=== PATIENT | female | born 1985 | race Caucasian/White ===

== ENCOUNTER 2021-05-20 18:00 | Inpatient (IN) | payer BC ==
[2021-05-20 19:09] VITALS: BMI 25.7
[2021-05-20] MEDS: DEXTROSE 5%-LACTATED RINGERS 1,000 ML IV SCH (19:30)
[2021-05-20] MEDS ORDERED: DINOPROSTONE 10 MG VAGINAL SUPPOSITORY VG ONE (19:34)
[2021-05-20 21:42] LABS: BASO % 0.1 % (0-2.0); EOS % 0.6 % (0-4.5); HEMATOCRIT 33.6 % (32.4-45.2); HEMOGLOBIN 11.4 GM/dL (10.7-15.3); LYMPH % 15.6 % (8-40); MCH 31.1 pg (25.7-33.7); MEAN CELL VOLUME 91.4 fl (80-96); MEAN PLT VOLUME 11.4 fl (7.5-11.1); MONO % 9.2 % (3.8-10.2); NEUT % 74.5 % (42.8-82.8); PLATELET COUNT 91 10^3/uL (134-434); RBC 3.67 M/mm3 (3.60-5.2); RDW 13.8 % (11.6-15.6); WHITE BLOOD COUNT 9.5 K/mm3 (4.0-10.0)
[2021-05-20 21:44] LABS: BLOOD UREA NITROGEN 9.9 mg/dL (7-18); CALCIUM 8.6 mg/dL (8.5-10.1)
[2021-05-20 21:48] LABS: CREATININE 0.8 mg/dL (0.55-1.3)
[2021-05-20 21:49] LABS: INR 0.91 (0.83-1.09); PROTHROMBIN TIME (PATIENT) 10.6 SEC (9.7-13.0)
[2021-05-21] MEDS ORDERED: PROMETHAZINE HCL 25 MG/1 ML VIAL ONE (00:09)
[2021-05-21] MEDS ORDERED: BUTORPHANOL TARTRATE 2 MG/ML VIAL ONE (00:09)
[2021-05-21] MEDS ORDERED: PROMETHAZINE HCL 25 MG/1 ML VIAL IVPB ONE (00:10)
[2021-05-21] MEDS ORDERED: BUTORPHANOL TARTRATE 1 MG/ML VIAL IVPB ONE (00:10)
[2021-05-21 01:18] LABS: BASO % 0.3 % (0-2.0); EOS % 0.7 % (0-4.5); HEMATOCRIT 32.8 % (32.4-45.2); HEMOGLOBIN 11.3 GM/dL (10.7-15.3); LYMPH % 17.9 % (8-40); MCH 31.4 pg (25.7-33.7); MCHC 34.4 g/dl (32.0-36.0); MEAN CELL VOLUME 91.4 fl (80-96); MEAN PLT VOLUME 11.3 fl (7.5-11.1); MONO % 9.4 % (3.8-10.2); NEUT % 71.7 % (42.8-82.8); PLATELET COUNT 78 10^3/uL (134-434); RBC 3.59 M/mm3 (3.60-5.2); RDW 13.3 % (11.6-15.6); WHITE BLOOD COUNT 8.5 K/mm3 (4.0-10.0)
[2021-05-21] MEDS: DEXTROSE 5%-LACTATED RINGERS 1,000 ML IV SCH (01:20)
[2021-05-21 03:37] LABS: BASO % 0.1 % (0-2.0); EOS % 0.1 % (0-4.5); HEMATOCRIT 34.2 % (32.4-45.2); HEMOGLOBIN 11.8 GM/dL (10.7-15.3); LYMPH % 14.9 % (8-40); MCH 31.5 pg (25.7-33.7); MCHC 34.6 g/dl (32.0-36.0); MEAN PLT VOLUME 11.1 fl (7.5-11.1); MONO % 6.7 % (3.8-10.2); NEUT % 78.2 % (42.8-82.8); PLATELET COUNT 76 10^3/uL (134-434); RBC 3.76 M/mm3 (3.60-5.2); RDW 13.7 % (11.6-15.6); WHITE BLOOD COUNT 10.4 K/mm3 (4.0-10.0)
[2021-05-21] MEDS ORDERED: PCA PUMP NR ONE ×2 (05:53→09:53)
[2021-05-21] MEDS ORDERED: FENTANYL/BUPIVACAINE/NS/PF - PCEA - 50 ML DISP.SYRIN EP ONE ×3 (05:54→14:37)
[2021-05-21] MEDS ORDERED: NALOXONE HCL 0.4 MG/ML VIAL IVPUSH PRN (06:41)
[2021-05-21] MEDS ORDERED: FENTANYL/BUPIVACAINE/NS/PF - PCEA - 50 ML DISP.SYRIN EP SCH (06:45)
[2021-05-21] MEDS ORDERED: OXYTOCIN 20 UNITS in 0.9% NS 20 UNIT/1,000 ML INFUS.BAG IV ONE (08:45)
[2021-05-21] MEDS ORDERED: OXYTOCIN 30 UNITS in 0.9% NS 30 UNIT/500 ML INFUS.BAG IVPB ONE (08:45)
[2021-05-21] MEDS ORDERED: OXYTOCIN 15 UNITS in 0.9% NS 15 UNIT/250 ML INFUS.BAG IVPB SCH (09:00)
[2021-05-21] MEDS ORDERED: BUPIVACAINE HCL/PF 0.25% (2.5MG/ML) 10 ML VIAL ONE ×3 (09:52→15:18)
[2021-05-21 10:43] LABS: BASO % 0.4 % (0-2.0); HEMATOCRIT 33.9 % (32.4-45.2); HEMOGLOBIN 11.7 GM/dL (10.7-15.3); LYMPH % 8.8 % (8-40); MCHC 34.4 g/dl (32.0-36.0); MEAN CELL VOLUME 90.1 fl (80-96); MEAN PLT VOLUME 11.7 fl (7.5-11.1); MONO % 4.8 % (3.8-10.2); PLATELET COUNT 78 10^3/uL (134-434); RBC 3.76 M/mm3 (3.60-5.2); RDW 13.6 % (11.6-15.6); WHITE BLOOD COUNT 12.2 K/mm3 (4.0-10.0)
[2021-05-21] MEDS ORDERED: LIDOCAINE HCL 1% PRESERVATIVE FREE - 30ML VIAL ONE (15:17)
[2021-05-21 19:01] LABS: CORD BASE EXCESS -6.7 mmol/L (0-2); CORD HCO3 19.7 mmHg (20-29); CORD PCO2 42.4 mmHg (30-78); CORD pH 7.284 (7.14-7.44)
[2021-05-21 19:04] LABS: CORD BASE EXCESS -6.9 mmol/L (0-2); CORD HCO3 21.2 mmHg (20-29); CORD PCO2 52.8 mmHg (30-78); CORD pH 7.221 (7.14-7.44)
[2021-05-21] MEDS ORDERED: METHYLERGONOVINE MALEATE 0.2 MG/1 ML AMP IM PRN (19:11)
[2021-05-21] MEDS ORDERED: BENZOCAINE 28 GM HEMORRHOIDAL OINTMENT TP PRN (19:11)
[2021-05-21] MEDS ORDERED: WITCH HAZEL 50% (TUCKS) 40 PAD/JAR PAD TP PRN (19:11)
[2021-05-21] MEDS ORDERED: BISACODYL 10 MG SUPP.RECT RC PRN (19:11)
[2021-05-21] MEDS ORDERED: IBUPROFEN 600 MG TABLET (FP) PO PRN (19:11)
[2021-05-21] MEDS ORDERED: BENZOCAINE 20% 57 GM BOTTLE TP PRN (19:11)
[2021-05-21] MEDS ORDERED: ACETAMINOPHEN 325 MG TABLET (FP) PO PRN ×2 (19:11)
[2021-05-21] MEDS ORDERED: OXYTOCIN 20 UNITS in 0.9% NS 20 UNIT/1,000 ML INFUS.BAG IV SCH (19:15)
[2021-05-21] MEDS ORDERED: ACETAMINOPHEN 325 MG TABLET (FP) ONE (19:45)
[2021-05-21] MEDS ORDERED: ceFAZolin SODIUM 1 GM VIAL ONE (19:46)
[2021-05-21 21:12] LABS: HEMATOCRIT 30.3 % (32.4-45.2); HEMOGLOBIN 10.1 GM/dL (10.7-15.3); MCH 30.3 pg (25.7-33.7); MCHC 33.3 g/dl (32.0-36.0); MEAN CELL VOLUME 90.8 fl (80-96); MEAN PLT VOLUME 11.4 fl (7.5-11.1); PLATELET COUNT 82 10^3/uL (134-434); RBC 3.34 M/mm3 (3.60-5.2); RDW 13.8 % (11.6-15.6)
[2021-05-22 00:03] LABS: ANISOCYTOSIS 0; MACROCYTOSIS 0; PLATELET ESTIMATE DECREASED
[2021-05-22] MEDS: FERROUS SO4 325 MG TABLET (FP) PO SCH ×3 (01:00→21:14)
[2021-05-22] MEDS ORDERED: ceFAZolin SODIUM 1 GM VIAL ONE ×3 (03:39→19:45)
[2021-05-22] MEDS ORDERED: DEXTROSE 5%-WATER - 50 ML IVPB ONE ×3 (03:39→19:45)
[2021-05-22] MEDS: CEFAZOLIN 1 GM in DEXTROSE 5%-WATER - 50 ML IVPB SCH ×3 (03:47→19:59)
[2021-05-22] MEDS: IBUPROFEN 600 MG TABLET (FP) PO PRN ×2 (04:54→12:46)
[2021-05-22 06:20] LABS: BASO % 0.1 % (0-2.0); EOS % 0.1 % (0-4.5); HEMATOCRIT 28.5 % (32.4-45.2); HEMOGLOBIN 9.4 GM/dL (10.7-15.3); MCH 30.9 pg (25.7-33.7); MCHC 33.1 g/dl (32.0-36.0); MEAN CELL VOLUME 93.3 fl (80-96); MEAN PLT VOLUME 11.2 fl (7.5-11.1); MONO % 7.4 % (3.8-10.2); NEUT % 84.4 % (42.8-82.8); PLATELET COUNT 77 10^3/uL (134-434); RBC 3.05 M/mm3 (3.60-5.2); RDW 14.1 % (11.6-15.6); WHITE BLOOD COUNT 16.3 K/mm3 (4.0-10.0)
[2021-05-22] MEDS ORDERED: PRENATAL VITAMINS W/ FOLIC ACID TABLET (FP) PO SCH (10:00)
[2021-05-22] MEDS: PRENATAL VITAMINS W/ FOLIC ACID TABLET (FP) PO SCH (10:28)
[2021-05-22] MEDS: DOCUSATE SODIUM 100 MG CAPSULE (FP) PO SCH ×2 (15:21→21:15)
[2021-05-22] MEDS ORDERED: CEFAZOLIN 1 GM in DEXTROSE 5%-WATER - 50 ML IVPB SCH (19:45)
[2021-05-22] MEDS ORDERED: SENNOSIDES/DOCUSATE COMBO (SENNA PLUS) TABLET (UD) PO PRN ×2 (22:00)
[2021-05-23] MEDS: DOCUSATE SODIUM 100 MG CAPSULE (FP) PO SCH ×2 (06:34→13:17)
[2021-05-23] MEDS: IBUPROFEN 600 MG TABLET (FP) PO PRN (10:39)
[2021-05-23] MEDS: PRENATAL VITAMINS W/ FOLIC ACID TABLET (FP) PO SCH (10:39)
[2021-05-23] MEDS: FERROUS SO4 325 MG TABLET (FP) PO SCH (10:42)
[2021-05-23 11:21] VITALS: BP 115/75; PULSE 76; TEMP 98.2
== END 2021-05-23 13:50 | disposition home or self-care (01) | DRG 768 ==
LOC: JLDR 18:00 → J3W 05-21 20:59
PROVIDERS: ADMIT Obstetrics & Gynecology; ATTEND Obstetrics & Gynecology
PROC: 0DQP0ZZ Repair Rectum, Open Approach (ICD-10-PCS; principal; 2021-05-21)
PROC: 10D07Z6 Extraction of Products of Conception, Vacuum, Via Natural or Artificial Opening (ICD-10-PCS; 2021-05-21)
DX: O48.0 Post-term pregnancy (principal); Z37.0 Single live birth; O70.3 Fourth degree perineal laceration during delivery; O75.81 Maternal exhaustion complicating labor and delivery; Z3A.40 40 weeks gestation of pregnancy
CPT/HCPCS: 36415; 36600; 59409; 80048; 82803; 85025; 85032; 85610; 85730; 86780; 86850; 86900; 86901; C9803; U0003; U0005

== ENCOUNTER 2022-07-08 04:12 | Day surgery (SDC) | payer BC ==
[2022-07-04 16:07] VITALS: BMI 21.7
[2022-07-08] MEDS ORDERED: IBUPROFEN 600 MG TABLET (FP) PO PRN (12:18)
[2022-07-08] MEDS ORDERED: ONDANSETRON 4 MG/2 ML VIAL IVPUSH PRN (12:18)
[2022-07-08] MEDS ORDERED: oxyCODONE HCL 5 MG TABLET PO PRN (12:18)
[2022-07-08] MEDS ORDERED: IBUPROFEN 800 MG/8 ML IJ IVPB PRN (12:18)
[2022-07-08] MEDS ORDERED: ELECTROLYTE-148 SOLN 1,000 ML IV SCH (12:30)
[2022-07-08] MEDS ORDERED: PROPOFOL 20 ML ONE ×2 (14:31→15:03)
[2022-07-08] MEDS ORDERED: MIDAZOLAM HCL 2 MG/2 ML SINGLE DOSE VIAL ONE ×2 (14:31→14:44)
[2022-07-08] MEDS ORDERED: FENTANYL CITRATE/PF 50 MCG/ML VIAL ONE ×2 (14:31→14:58)
[2022-07-08 17:13] VITALS: RESP 16
[2022-07-08 17:23] VITALS: BP 102/63; PULSE 72; TEMP 98.2
== END 2022-07-08 16:15 | disposition home or self-care (01) ==
LOC: JASU-SURG 04:12
PROVIDERS: ATTEND Obstetrics & Gynecology
PROC: 10D17ZZ Extraction of Products of Conception, Retained, Via Natural or Artificial Opening (ICD-10-PCS; principal; 2022-07-08 13:00)
DX: O02.1 Missed abortion (principal); Q96.9 Turner's syndrome, unspecified
CPT/HCPCS: 76998-TC; 88305-TC

== ENCOUNTER 2023-05-12 06:45 | Inpatient (IN) | payer BC ==
[2023-05-12] MEDS: ELECTROLYTE-148 SOLN 1,000 ML IV SCH (08:00)
[2023-05-12] MEDS ORDERED: ONDANSETRON 4 MG/2 ML VIAL IVPUSH PRN (08:00)
[2023-05-12] MEDS ORDERED: ACETAMINOPHEN 325 MG TABLET (FP) PO PRN (08:00)
[2023-05-12] MEDS ORDERED: IBUPROFEN 600 MG TABLET (FP) PO PRN (08:00)
[2023-05-12 08:01] VITALS: BMI 26.9
[2023-05-12] MEDS ORDERED: DEXTROSE 5%-LACTATED RINGERS 1,000 ML IV SCH (08:30)
[2023-05-12] MEDS ORDERED: LIGASURE IMPACT TP ONE (08:32)
[2023-05-12] MEDS ORDERED: morphine SULFATE/PF 1 MG/2 ML (2cc Syringe - QUVA) ONE (08:50)
[2023-05-12] MEDS ORDERED: ePHEDrine SULFATE 50 MG/1 ML AMPULE ONE ×2 (09:05→09:16)
[2023-05-12] MEDS ORDERED: PHENYLEPHRINE HCL 10 MG/1 ML SINGLE DOSE VIAL ONE (09:16)
[2023-05-12] MEDS ORDERED: ceFAZolin SODIUM 1 GM VIAL ONE ×2 (09:16)
[2023-05-12] MEDS ORDERED: FENTANYL CITRATE/PF 50 MCG/ML VIAL ONE (09:35)
[2023-05-12 10:01] LABS: CORD BASE EXCESS -6.4 mmol/L (0-2); CORD HCO3 20.3 mmHg (20-29); CORD PCO2 44.5 mmHg (30-78); CORD pH 7.276 (7.14-7.44)
[2023-05-12 10:03] LABS: CORD BASE EXCESS -4.9 mmol/L (0-2); CORD HCO3 24.5 mmHg (20-29); CORD PCO2 65.5 mmHg (30-78); CORD pH 7.19 (7.14-7.44)
[2023-05-12] MEDS ORDERED: OXYTOCIN 20 UNITS in 0.9% NS 20 UNIT/1,000 ML INFUS.BAG IV ONE (10:43)
[2023-05-12] MEDS ORDERED: METHYLERGONOVINE MALEATE 0.2 MG/1 ML AMP IM PRN (10:44)
[2023-05-12] MEDS ORDERED: OXYTOCIN 20 UNITS in 0.9% NS 20 UNIT/1,000 ML INFUS.BAG IV SCH (10:45)
[2023-05-12] MEDS ORDERED: IBUPROFEN 800 MG/8 ML IJ IVPB ONE (11:39)
[2023-05-12] MEDS: IBUPROFEN 800 MG/8 ML IJ IVPB PRN ×2 (11:42→20:20)
[2023-05-12] MEDS ORDERED: CITRIC ACID/SODIUM CITRATE 30 ML UNIT-DOSE CUP PO ONE (11:55)
[2023-05-12] MEDS ORDERED: ACETAMINOPHEN 1000 MG/100 ML BAG IVPB PRN (11:56)
[2023-05-12] MEDS ORDERED: oxyCODONE HCL 5 MG TABLET PO PRN (22:44)
[2023-05-13] MEDS: IBUPROFEN 600 MG TABLET (FP) PO PRN ×4 (04:31→18:26)
[2023-05-13] MEDS: ACETAMINOPHEN 325 MG TABLET (FP) PO PRN ×2 (07:41→11:08)
[2023-05-13] MEDS: SIMETHICONE 80 MG TAB.CHEW (FP) PO PRN ×2 (07:41→18:26)
[2023-05-13 09:38] LABS: BASO % 0.2 % (0-2.0); EOS % 0.4 % (0-4.5); HEMATOCRIT 30.3 % (32.4-45.2); HEMOGLOBIN 9.9 GM/dL (10.7-15.3); LYMPH % 12.1 % (8-40); MCH 29.5 pg (25.7-33.7); MCHC 32.6 g/dl (32.0-36.0); MEAN CELL VOLUME 90.5 fl (80-96); MEAN PLT VOLUME 10.7 fl (7.5-11.1); MONO % 7.2 % (3.8-10.2); NEUT % 80.1 % (42.8-82.8); PLATELET COUNT 91 10^3/uL (134-434); RBC 3.35 M/mm3 (3.60-5.2); WHITE BLOOD COUNT 7.9 K/mm3 (4.0-10.0)
[2023-05-13] MEDS ORDERED: BISACODYL 10 MG SUPP.RECT RC PRN (10:44)
[2023-05-14] MEDS: SIMETHICONE 80 MG TAB.CHEW (FP) PO PRN ×4 (00:10→19:43)
[2023-05-14] MEDS: IBUPROFEN 600 MG TABLET (FP) PO PRN ×4 (00:10→19:43)
[2023-05-14] MEDS: ELECTROLYTE-148 SOLN 1,000 ML IV SCH (00:57)
[2023-05-15] MEDS: SIMETHICONE 80 MG TAB.CHEW (FP) PO PRN ×2 (02:35→09:48)
[2023-05-15] MEDS: IBUPROFEN 600 MG TABLET (FP) PO PRN ×2 (02:36→09:46)
[2023-05-15 08:04] VITALS: BP 102/63; PULSE 80; RESP 20; TEMP 98.6
[2023-05-15 08:31] LABS: BASO % 0.2 % (0-2.0); EOS % 1.4 % (0-4.5); HEMOGLOBIN 9.2 GM/dL (10.7-15.3); LYMPH % 19.2 % (8-40); MCH 29.5 pg (25.7-33.7); MEAN CELL VOLUME 89.5 fl (80-96); MEAN PLT VOLUME 10.1 fl (7.5-11.1); MONO % 6.8 % (3.8-10.2); NEUT % 72.4 % (42.8-82.8); PLATELET COUNT 113 10^3/uL (134-434); RBC 3.13 M/mm3 (3.60-5.2); RDW 15.8 % (11.6-15.6); WHITE BLOOD COUNT 6.3 K/mm3 (4.0-10.0)
== END 2023-05-15 11:55 | disposition home or self-care (01) | DRG 784 ==
LOC: JLDR 06:45 → J3W 12:40
PROVIDERS: ADMIT Obstetrics & Gynecology; ATTEND Obstetrics & Gynecology
PROC: 10D00Z1 Extraction of Products of Conception, Low, Open Approach (ICD-10-PCS; principal; 2023-05-12)
PROC: 0UT70ZZ Resection of Bilateral Fallopian Tubes, Open Approach (ICD-10-PCS; 2023-05-12)
DX: O24.420 Gestational diabetes mellitus in childbirth, diet controlled (principal); O99.12 Other diseases of the blood and blood-forming organs and certain disorders involving the immune mechanism complicating childbirth; D69.6 Thrombocytopenia, unspecified; Z87.59 Personal history of other complications of pregnancy, childbirth and the puerperium; Z30.2 Encounter for sterilization; Z3A.39 39 weeks gestation of pregnancy; Z37.0 Single live birth
CPT/HCPCS: 36415; 36600; 82803; 82962; 85025; 87340; 94010